=== PATIENT | female | born 1995 | race Caucasian/White ===

== ENCOUNTER 2018-06-15 20:37 | Emergency (ER) | payer MEDICAID, OTHER ==
[~2018-06-15] VITALS: Ht 165.1 cm; Wt 136.4 kg
[~2018-06-15 20:37] MED LIST: HYDR-3240; ONDA4TAB7
[2018-06-15 20:40] VITALS: BP 137/86
[2018-06-15] MEDS ORDERED: KETOROLAC 30 MG/1 ML ONE (21:29)
[2018-06-15] MEDS ORDERED: KETOROLAC 30 MG/1 ML IM ONE (21:30)
== END 2018-06-15 21:38 | disposition home or self-care (01) ==
LOC: ED 21:32
DX: M25.511 Pain in right shoulder (principal)
CPT/HCPCS: 73030; 96372; 99284; J1885

== ENCOUNTER 2019-04-19 22:37 | Emergency (ER) | payer OTHER ==
[~2019-04-19] VITALS: Ht 165.1 cm; Wt 126.8 kg
[2019-04-19 22:42] VITALS: BP 128/75
[2019-04-19] MEDS ORDERED: KETOROLAC 30 MG/1 ML ONE (23:15)
[2019-04-19] MEDS ORDERED: ACETAMINOPHEN 650 MG/20.3 ML UDC ONE (23:15)
[2019-04-19] MEDS ORDERED: LIDODERM 5% PATCH TD ONE ×2 (23:15→23:30)
[2019-04-19] MEDS ORDERED: ACETAMINOPHEN 650 MG/20.3 ML UDC PO ONE (23:30)
[2019-04-19] MEDS ORDERED: KETOROLAC 30 MG/1 ML IM ONE (23:30)
[2019-04-19 23:39] LABS: HCG UR SG 1.037 (1.003-1.030)
--- NOTE | 2019-04-20 00:05 | NUR ---
Pt states improvement of pain to tolerable level.
[2019-04-20] MEDS ORDERED: ONDANSETRON ODT 4 MG ONE (00:12)
[2019-04-20] MEDS ORDERED: ONDANSETRON ODT 4 MG PO ONE (00:30)
== END 2019-04-20 00:54 | disposition home or self-care (01) ==
LOC: ED 04-20 00:05
DX: S39.012A Strain of muscle, fascia and tendon of lower back, initial encounter (principal); Z88.6 Allergy status to analgesic agent; X58.XXXA Exposure to other specified factors, initial encounter; Y93.89 Activity, other specified; Y92.89 Other specified places as the place of occurrence of the external cause; Y99.8 Other external cause status
CPT/HCPCS: 81025; 96372; 99284; J1885; Q0162

== ENCOUNTER 2019-11-22 16:43 | Emergency (ER) | payer OTHER ==
[~2019-11-22] VITALS: Ht 165.1 cm; Wt 133.5 kg
[2019-11-22 18:19] LABS: BASOPHILS % (AUTO) 1 % (0-1); EOSINOPHILS # (AUTO) 0.01 x10^3/uL (0-0.4); EOSINOPHILS % (AUTO) 0 % (1-7); LYMPHOCYTES # (AUTO) 3.84 x10^3/uL (1-3.4); LYMPHOCYTES % (AUTO) 32 % (22-44); MD NO; MEAN CORPUSCULAR HEMOGLOBIN 30.3 pg (27.0-34.8); MEAN CORPUSCULAR HGB CONC 34.3 g/dL (32.4-35.8); MEAN CORPUSCULAR VOLUME 88.1 fL (80-100); MEAN PLATELET VOLUME 8.5 fL (7.4-10.4); MONOCYTES # (AUTO) 0.69 x10^3/uL (0.2-0.8); MONOCYTES % (AUTO) 6 % (2-9); NEUTROPHILS # (AUTO) 7.34 x10^3/uL (1.8-6.8); NEUTROPHILS % (AUTO) 61 % (42-75); PLATELET COUNT 301 x10^3/uL (130-400); RED BLOOD COUNT 4.55 x10^6/uL (3.82-5.3); RED CELL DISTRIBUTION WIDTH 13.1 % (9.6-15.2)
[2019-11-22 18:30] LABS: ANION GAP 7 mmol/L (5-15); CALCIUM 9.2 mg/dL (8.5-10.1); CHLORIDE 107 mmol/L (98-107)
[2019-11-22 21:05] VITALS: BP 137/97
--- NOTE | 2019-11-22 21:27 | NUR ---
PROGRAM DIRECTOR GROUP WORK: [facility]A COLLECTED AND SENT FROM TRIAGE
[2019-11-22 21:42] LABS: MICROSCOPIC AUTO
[2019-11-22 21:43] LABS: CULTURE INDICATED? NO
--- NOTE | 2019-11-22 22:12 | NUR ---
FROM LOBBY TO ROOM AT THIS TIME
--- NOTE | 2019-11-22 22:26 | NUR ---
PT PRESENTING TO ER FOR UTI SYMPTOMS, STS ON ABX SINCE FRIDAY GIVEN BY [facility] BUT HAS SINCE DEVELOPED LEFT SIDED FLANK PAIN STARTING YESTERDAY GETTING PROGRESSIVLY WORSE. CALL LIGHT WITHIN REACH. AWAITING MD ASSESSMENT AND FURTHER ORDERS AT THIS TIME
--- NOTE | 2019-11-22 22:52 | NUR ---
PT REFUSING RETAKE OF VS.
== END 2019-11-22 23:12 | disposition home or self-care (01) ==
LOC: ED 23:00
DX: M54.5 Low back pain (principal); F17.200 Nicotine dependence, unspecified, uncomplicated
CPT/HCPCS: 36415; 80048; 81001; 81025; 85025; 93005; 99284